=== PATIENT | female | born 1955 | race Caucasian/White ===

== ENCOUNTER → 2022-07-28 | Outpatient (CLI) | payer MEDICARE, MEDICAID | LOC: COL.RAD 08:01 | DX: Z08 Encounter for follow-up examination after completed treatment for malignant neoplasm (principal); Z85.118 Personal history of other malignant neoplasm of bronchus and lung; Z90.2 Acquired absence of lung [part of]; R91.8 Other nonspecific abnormal finding of lung field; K44.9 Diaphragmatic hernia without obstruction or gangrene; E27.9 Disorder of adrenal gland, unspecified; N28.1 Cyst of kidney, acquired; K57.90 Diverticulosis of intestine, part unspecified, without perforation or abscess without bleeding | CPT/HCPCS: Q9967 ==

== ENCOUNTER → 2023-02-18 | Outpatient (CLI) | payer MEDICARE, MEDICAID ==
[~2023-02-18] MED LIST: ASPIRIN E.C. 8181 MG PO; COREG 6.256.25 MG/TA PO; DESYREL 50MG50 MG PO; FLONASE NASAL S16 GM NS; FOSAMAX 70MG TA70 MG PO; LIPITOR 40MG TA40 MG PO; NEURONTIN300 MG/CAP PO; PHRENILIN 325 M1 TAB PO; PROTONIX 40MG T40 MG PO; TRELEGY ELLIPT1 EACH IH; TYLENOL 500MG500 MG PO
== END ==
LOC: COL.RAD 07:17
DX: C34.90 Malignant neoplasm of unspecified part of unspecified bronchus or lung (principal); R16.0 Hepatomegaly, not elsewhere classified; K44.9 Diaphragmatic hernia without obstruction or gangrene; Z90.49 Acquired absence of other specified parts of digestive tract; Z90.5 Acquired absence of kidney
CPT/HCPCS: Q9967